=== PATIENT | male | born 2005 | race Caucasian/White ===

== ENCOUNTER 2025-02-04 01:50 | Emergency (ER) | payer MEDICAID ==
[~2025-02-04] VITALS: Ht 175.3 cm; Wt 100.1 kg
[2025-02-04 01:57] VITALS: BP 145/87; PULSE 79; RESP 18; TEMP 37.1; O2SAT 99
[2025-02-04] MEDS ORDERED: IBUP-2028 MT (03:41)
== END 2025-02-04 04:28 | disposition home or self-care (01) ==
LOC: ER 01:50
DX: M79.641 Pain in right hand (principal); M79.642 Pain in left hand
CPT/HCPCS: 73130; 99283